=== PATIENT | female | born 2000 | race Caucasian/White ===

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

== ENCOUNTER 2018-08-13 06:15 | Emergency (ER) | payer MEDICAID ==
[2018-08-13] MEDS ORDERED: IBUPROFEN PO ONE ×2 (07:02→07:04)
--- NOTE | 2018-08-13 07:21 | Emergency Department Report ---
Minor Respiratory - HPI Chief Complaint: Fever Stated Complaint: FEVER, SORE THROAT Time Seen by Provider: 08/13/18 07:05 Duration: 2 Days Pain Location: Throat Severity: mild Minor Respiratory: Yes Sore Throat, Yes Able to Tolerate Fluids, Yes Fever, No Rhinorrhea, No Ear Pain, No Cough, No Sick Contacts, No Hemoptysis, No Chest Pain, No Shortness of Breath Other History: Patient is a 17-year-old female who comes to the emergency room this morning with sore throat 2 days. She does have a fever on admission. She denies cough, headache, ear pain, aches and pains of influenza. She does have a medical history of asthma but she usually does not have problems with that. She is on no home medications ED Review of Systems ROS: Stated complaint: FEVER, SORE THROAT Other details as noted in HPI Comment: All other systems reviewed and negative Constitutional: see HPI, fever. denies: chills Eyes: denies: eye pain, eye discharge ENT: as per HPI, throat pain. denies: ear pain Respiratory: denies: cough, orthopnea, shortness of breath, wheezing Cardiovascular: denies: chest pain, palpitations ED Past Medical Hx - Past Medical History Previous Medical History?: Yes Hx Psychiatric Treatment: Yes (depression) Hx Asthma: Yes Additional medical history: hx of depression - Surgical History Past Surgical History?: Yes Additional Surgical History: C section. - Social History Smoking Status: Never Smoker Substance Use Type: None - Medications Home Medications: Home Medications Medication Instructions Recorded Confirmed Last Taken Type Amoxicillin 500 mg PO BID #20 capsule 08/13/18 Unknown Rx Minor Respiratory Exam - Exam General: Vital signs noted. No distress. Alert and acting appropriately. HEENT: Yes Pharyngeal Erythema (uvula boggy and enlongated), Yes Moist Mucous Membranes, No Pharyngeal Exudates, No Rhinorrhea, No Conjuctival Injection, No Frontal Tenderness, No Maxillary Tenderness Ear: Neither TM Bulge, Neither TM Erythema, Neither EAC Pain, Neither EAC Discharge Neck: Yes Adenopathy, No Supple Lungs: Yes Good Air Exchange, No Wheezes, No Ronchi, No Stridor, No Cough, No Labored Respirations, No Retractions, No Use of Accessory Muscles, No Other Abnormal Lung Sounds Heart: Yes Regular, No Murmur Abdomen: Yes Normal Bowel Sounds, No Tenderness, No Peritoneal Signs Skin: No Rash, No Edema Neurologic: Alert and oriented, no deficits. Musculoskeletal: Unremarkable. ED Course Vital Signs 08/13/18 06:47 Temperature 100.9 F H Pulse Rate 116 H Respiratory 16 Rate Blood Pressure 105/73 O2 Sat by Pulse 97 Oximetry ED Medical Decision Making - Medical Decision Making no body aches of flu no pharyngeal exudates lungs clear to auscultation abd soft non tender sinus non tender ears wnl fever red and elonged uvula medicated for fever taking po without difficulty ambulatory and nontoxic - Differential Diagnosis flu v urti v asthma ae Critical care attestation.: If time is entered above; I have spent that time in minutes in the direct care of this critically ill patient, excluding procedure time. ED Disposition Clinical Impression: Uvulitis, Fever Disposition: - TO HOME OR SELFCARE Is pt being admited?: No Does the pt Need Aspirin: No Condition: Stable Instructions: Pharyngitis (ED) Additional Instructions: diet as tolerated activity as tolerated med as ordered today until gone over the counter motrin and tylenol for fever or pain follow up pcp Friday if not better referral below Referrals: RADHA CRANE DO [Staff Physician] - 3-5 Days Time of Disposition: 07:19
[2018-08-13 07:39] VITALS: BP 104/68
== END 2018-08-13 07:42 | disposition home or self-care (01) ==
LOC: ED 06:15
DX: K12.2 Cellulitis and abscess of mouth (principal); F32.9 Major depressive disorder, single episode, unspecified; J45.909 Unspecified asthma, uncomplicated
CPT/HCPCS: 87430